=== PATIENT | male | born 1960 | race Two or more races ===

== ENCOUNTER 2021-03-29 13:48 | Inpatient (IN) | payer OTHER ==
[~2021-03-29] VITALS: Ht 185.4 cm; Wt 108.4 kg
[2021-03-29] MEDS ORDERED: COZAAR50 MG PO (14:16)
[2021-03-29] MEDS ORDERED: SEMGLEE100 UNIT/1 (14:16)
[2021-04-02] MEDS ORDERED: TAMSULOSIN HCL0.4 MG (11:00)
[2021-04-02] MEDS ORDERED: VALSARTAN-HCTZ1 EAC4 (11:00)
[2021-04-02] MEDS ORDERED: MONTELUKAST SOD10 MG (11:00)
[2021-04-02] MEDS ORDERED: FAMOTIDINE40 MG (11:00)
[2021-04-02] MEDS ORDERED: AMLODIPINE BESY10 MG (11:00)
[2021-04-02] MEDS ORDERED: XIGDUO XR 5 MG1 EAC1 (11:00)
== END 2021-04-02 13:32 | disposition designated cancer center or children's hospital (05) | DRG 281 ==
LOC: ER 13:48 → ICU-2 21:46 → ICU 21:46
PROVIDERS: ADMIT Internal Medicine; ATTEND Internal Medicine
PROC: B24BZZZ Ultrasonography of Heart with Aorta (ICD-10-PCS; principal; 2021-03-30)
PROC: BW24ZZZ Computerized Tomography (CT Scan) of Chest and Abdomen (ICD-10-PCS; 2021-03-30)
DX: I24.9 Acute ischemic heart disease, unspecified (principal); I21.4 Non-ST elevation (NSTEMI) myocardial infarction; N17.8 Other acute kidney failure; R07.89 Other chest pain; R00.1 Bradycardia, unspecified; I10 Essential (primary) hypertension; E11.65 Type 2 diabetes mellitus with hyperglycemia; Z79.4 Long term (current) use of insulin; E66.8 Other obesity; Z20.822 Contact with and (suspected) exposure to COVID-19; D69.6 Thrombocytopenia, unspecified